=== PATIENT | male | born 1960 | race Caucasian/White ===

== ENCOUNTER 2017-09-15 09:53 | Emergency (ER) | payer BC ==
[~2017-09-15] VITALS: Ht 175.3 cm; Wt 86.0 kg
[~2017-09-15 09:53] MED LIST: NOHOMEMEDS
[2017-09-15] MEDS ORDERED: MOTRIN800 MG PO (13:46)
[2017-09-15] MEDS ORDERED: PERCOCET 5/31 TABLET PO (13:46)
[2017-09-15] MEDS ORDERED: ULTRAM50 MG PO (13:46)
[2017-09-15] MEDS ORDERED: FLEXERIL10 MG PO (13:46)
[2017-09-15 14:27] VITALS: BP 128/83
== END 2017-09-15 14:29 | disposition home or self-care (01) ==
LOC: EME 09:53
DX: M54.31 Sciatica, right side (principal); N40.0 Benign prostatic hyperplasia without lower urinary tract symptoms; Z87.39 Personal history of other diseases of the musculoskeletal system and connective tissue
CPT/HCPCS: 99281; 99284